=== PATIENT | male | born 1990 | race Caucasian/White ===

== ENCOUNTER 2021-04-15 03:16 | Emergency (ER) | payer OTHER ==
[~2021-04-15] VITALS: Ht 188 cm; Wt 77.6 kg
--- NOTE | 2021-04-15 03:25 | NUR ---
Dr. Kan at bedside for MSE.
[2021-04-15] MEDS ORDERED: KETOROLAC TROMETHAMINE 30 MG INJ IM ONE (03:30)
--- NOTE | 2021-04-15 03:35 | NUR ---
Xray at bedside.
[2021-04-15] MEDS ORDERED: NAPR-1164 PO (03:56)
[2021-04-15] MEDS ORDERED: KETOROLAC TROMETHAMINE 30 MG INJ ONE (04:00)
--- NOTE | 2021-04-15 04:12 | NUR ---
Patient eloped from facility. ER physician notified.
== END 2021-04-15 04:15 | disposition left against medical advice (07) ==
LOC: ER 03:20
DX: M25.531 Pain in right wrist (principal); V00.131A Fall from skateboard, initial encounter; Y93.51 Activity, roller skating (inline) and skateboarding; Y92.89 Other specified places as the place of occurrence of the external cause; F17.210 Nicotine dependence, cigarettes, uncomplicated
CPT/HCPCS: 73110; 73130; 96372; 99284; 99406; J1885; A4663

== ENCOUNTER 2021-05-04 07:09 | Emergency (ER) | payer OTHER ==
[~2021-05-04] VITALS: Ht 185.4 cm; Wt 71.7 kg
[~2021-05-04 07:09] MED LIST: NAPR-1164 PO
[2021-05-04] MEDS ORDERED: LORAZEPAM 0.5 MG TABLET PO ONE (07:45)
[2021-05-04] MEDS ORDERED: PROPRANOLOL HCL 10 MG TABLET PO ONE (08:00)
[2021-05-04] MEDS ORDERED: PROPRANOLOL HCL 10 MG TABLET ONE (08:10)
[2021-05-04] MEDS ORDERED: LORAZEPAM 1 MG TABLET ONE (08:11)
[2021-05-04] MEDS ORDERED: PROP10TA10 PO (08:54)
[2021-05-04] MEDS ORDERED: DIAZEPAM 2 MG TABLET PO ONE (09:00)
[2021-05-04 09:04] VITALS: BP 140/74
--- NOTE | 2021-05-04 09:04 | NUR ---
Patient discharged to home in stable condition. Written and verbal after care instructions given. Patient verbalizes understanding of instructions. Stressed follow up or return to ER for worsening s/s.
[2021-05-04] MEDS ORDERED: DIAZEPAM 2 MG TABLET ONE (09:05)
--- NOTE | 2021-05-04 09:10 | NUR ---
Ativan 1mg po tab was wasted per hospital protocol and witnessed by Sadi Palacio RN. Unable to waste in pyxis because patient has already been departed. Second nurse was unavailable earlier for witness of waste in pyxis.
== END 2021-05-04 09:08 | disposition home or self-care (01) ==
LOC: ER 07:14
DX: F41.0 Panic disorder [episodic paroxysmal anxiety] (principal); F41.9 Anxiety disorder, unspecified; R00.0 Tachycardia, unspecified; Z88.8 Allergy status to other drugs, medicaments and biological substances
CPT/HCPCS: 93005; A4663